=== PATIENT | male | born 1990 ===

== ENCOUNTER 2018-02-09 12:54 | Emergency (ER) | payer SELFPAY ==
--- NOTE | 2018-02-09 13:57 | UC ---
Respiratory Complaint HPI - HPI Summary HPI Summary: 27 y/o male presents to the urgent care c/o productive cough w/ green sputum, nasal congestion, MUÑOZ, B/l ear pressure, low grade fever, chills body aches and joint pains for the past week. sinus pain is 5/10. Pt has taking Tylenol and Mucinex OTC to alleviate symptoms. Pt states he feel SOB at times. Pt denies wheezing, sick contacts, chest pain, abdominal pain N/V/D. - History of Current Complaint Chief Complaint: UCGeneralIllness Stated Complaint: CONGESTED,FEVER Time Seen by Provider: 02/09/18 12:56 Hx Obtained From: Patient Onset/Duration: Gradual Onset, Lasting Weeks - 1 week, Still Present, Worse Since - yesterday Timing: Intermittent Episodes Severity Initially: Mild Severity Currently: Moderate Pain Intensity: 5 - sinus pain Pain Scale Used: 0-10 Numeric Character: Cough: Productive, Sputum Description: - green Aggravating Factors: Recumbent Position Alleviating Factors: OTC Meds Associated Signs And Symptoms: Positive: Dyspnea, Fever, Chills, URI, Nasal Congestion, Sinus Discomfort - Risk Factors Pulmonary Embolism Risk Factors: Negative - Allergies/Home Medications Allergies/Adverse Reactions: Allergies Allergy/AdvReac Type Severity Reaction Status Date / Time No Known Allergies Allergy Verified 02/09/18 13:09 PMH/Surg Hx/FS Hx/Imm Hx Previously Healthy: Yes - Pt denies PMHX - Surgical History Surgical History: None Surgery Procedure, Year, and Place: lasik eyes 3yrs - Family History Known Family History: Positive: Cardiac Disease, Hypertension, Diabetes Family History: dyslipidemia - Social History Occupation: Employed Full-time Lives: With Family Alcohol Use: Occasionally Substance Use Type: None Smoking Status (MU): Never Smoked Tobacco Review of Systems Constitutional: Fever, Chills, Other - body aches Skin: Negative Eyes: Negative ENT: Nasal Discharge, Sinus Congestion, Sinus Pain/Tenderness Respiratory: Shortness Of Breath, Cough - productive w/ green sputum Cardiovascular: Negative Gastrointestinal: Negative Genitourinary: Negative Motor: Negative Neurovascular: Negative Musculoskeletal: Negative Neurological: Headache Psychological: Negative Is Patient Immunocompromised?: No All Other Systems Reviewed And Are Negative: Yes Physical Exam - Summary Physical Exam Summary: Vital Signs Reviewed: Yes General: well developed, well nourished male sitting in the examining table w/o any apparent distress Eyes: Positive: Conjunctiva Clear - PERRLA, EOMI, fundi grossly normal ENT: Positive: Normal ENT inspection, Hearing grossly normal, Pharynx normal, Nasal congestion - edematous and erythematous nasal mucosa, Nasal drainage - yellowish drainage, TMs normal. Negative: Tonsillar swelling, Tonsillar exudate Neck: Positive: Supple, Nontender, No Lymphadenopathy Respiratory: no orthopnea or dyspnea. Able to speak in full sentences, no retractions or accessory muscle use, no tripod position, stridor, or head bobbing. Positive breath sound B/L. Mild posterior lung w/ scattered rhonchi, no wheezing , crackles or rales. Cardiovascular: Positive: RRR, No Murmur, Pulses Normal, Brisk Capillary Refill Abdomen Description: Positive: Nontender, No Organomegaly, Soft. Negative: CVA Tenderness (R), CVA Tenderness (L) Bowel Sounds: Positive: Present Musculoskeletal Exam: Normal Musculoskeletal: Positive: Strength Intact, ROM Intact, No Edema Neurological Exam: Normal Psychological Exam: Normal Skin Exam: Normal Triage Information Reviewed: Yes Vital Signs: Initial Vital Signs Temp 98.9 F 02/09/18 13:03 Pulse 107 02/09/18 13:03 Resp 20 02/09/18 13:03 BP 156/94 02/09/18 13:03 Pulse Ox 100 02/09/18 13:03 UC Diagnostic Evaluation - Laboratory O2 Sat by Pulse Oximetry: 100 Respiratory Course/Dx - Course Course Of Treatment: 27 y/o male presents to the urgent care c/o productive cough w/ green sputum, nasal congestion, MUÑOZ, B/l ear pressure, low grade fever, chills body aches and joint pains for the past week. sinus pain is 5/10. Pt has taking Tylenol and Mucinex OTC to alleviate symptoms. Pt states he feel SOB at times. Pt denies wheezing, sick contacts, chest pain, abdominal pain N/V/D. Hx obtained. Pt w/ Positive breath sound B/L. Mild posterior lung w/ scattered rhonchi on examiantion. O2Sat:100% Pt mildly tachycardic. Influenza A&B ordred: negative. Pt declined Chest X-ray to r/o pneumonia. Pt with Acute bronchitis vs Walking Pneumoniaon. Pt Rx Z-ally PO and advised to continue w/ Mucinex PO. Pt advised to increase fluid intake and eat well. if not improvement or worsening of symptoms to return to the urgent care or f/u with PCP for further management. Pt's BP is elevated today advised to decrease salt in diet, monitor BP and f/u with PCP for further management. Pt understood and agreed with plan of care. Pt Rx Z-ally - Differential Dx/Diagnosis Differential Diagnosis/HQI/PQRI: Bronchitis, Influenza, Laryngitis, Lower Resp Infection, Sinusitis Provider Diagnoses: 1- Acute bronchitis. 2- cough Discharge - Sign-Out/Discharge Documenting (check all that apply): Discharge/Admit/Transfer - D/c home - Discharge Plan Condition: Stable Disposition: HOME Prescriptions: Azithromyxin ALLY (NF) [Z-Ally (Zithromax) 250 mg tabs #6] 2 tab PO .TODAY, THEN 1 DAILY #6 tab Patient Education Materials: Acute Bronchitis (ED), Low-Sodium Diet (ED) Referrals: Mikey Ariza MD [Primary Care Provider] - 3 Days Additional Instructions: 1-Please take full course of antibiotic to avoid resistance. 2-Continue taking Mucinex PO to alleviate cough. Increase fluid intake, rest and eat well. Take tylenol Po q6-8hrs to alleviate fever 3- If symptoms do not improve or worsen or your develop SOB with fever and severe wheezing please go immediately to the ER further evaluation and treatment. 4- F/u with your PCP in 2-3 days if not improvement of symptoms for further management. 5-Your BP is elevated today. please decrease salt in your diet, monitor BP and if it continues to be elevated please f/u with your PCP for further management - Billing Disposition and Condition Condition: STABLE Disposition: HOME
== END 2018-02-09 14:35 | disposition home or self-care (01) ==
LOC: UCEAST 12:54
DX: J20.9 Acute bronchitis, unspecified (principal); R05 Cough
CPT/HCPCS: 87502; 99212; G0463